=== PATIENT | male | born 1975 | race Caucasian/White ===

== ENCOUNTER 2019-03-04 07:14 | Emergency (ER) | payer BC ==
[~2019-03-04] VITALS: Ht 185.4 cm; Wt 108.4 kg
[~2019-03-04 07:14] MED LIST: HYDR-4011 PO; NAPR-985 PO; TAMS-14 PO
[2019-03-04 07:18] VITALS: Ht 185.4 cm; Wt 108.4 kg
[2019-03-04] MEDS ORDERED: ONDANSETRON 4 MG INJ IV STA (07:33)
[2019-03-04] MEDS ORDERED: SOD CHLORIDE 0.9% 1,000 ML IV STA (07:33)
[2019-03-04] MEDS ORDERED: KETOROLAC 30 MG INJ IV STA (07:33)
[2019-03-04] MEDS ORDERED: IOHEXOL 300MG/ML 150 ML BTL ONE (09:10)
[2019-03-04] MEDS ORDERED: SOD CHLORIDE 0.9% 100 ML ONE (09:10)
[2019-03-04 09:56] VITALS: BP 118/66; PULSE 89; RESP 18
--- NOTE | 2019-03-04 15:46 | ERD ---
ER Documentation Chief Complaint Chief Complaint LEFT LOWER BACK PAIN STARTING AT 0400 TODAY. HPI 43-year-old male presenting with left lower back pain that started this morning around 4 AM. He was not lifting had no traumatic injury. He did go for a run yesterday for the first time in a while. Describes it as intermittent and sharp pain with no abdominal pain. No vomiting but does have nausea. No fevers or chills. Denies use of medication. Medical history is hypertension hypercholesterolemia. Denies allergies to medications. Surgical history denies. Social history denies ROS All systems reviewed and are negative except as per history of present illness. Medications Home Meds Active Scripts Naproxen* (Naprosyn*) 500 Mg Tablet, 500 MG PO BID PRN for PAIN AND/OR INFLAMMATION, #30 TAB Prov:JAMILA CHERY PA-C 03/04/19 Hydrocodone/Acetaminophen ([place] 5-325 Tablet) 1 Each Tablet, 1 TAB PO Q6H PRN for PAIN, #7 TAB Prov:JAMILA CHERY PA-C 03/04/19 Tamsulosin Hcl* (Flomax*) 0.4 Mg Cap.er.24h, 0.4 MG PO QPM, #30 CAP Prov:JAMILA CHERY PA-C 03/04/19 Allergies Allergies: Coded Allergies: No Known Allergy (Unverified , 03/04/19) PMhx/Soc Medical and Surgical Hx: pt denies Medical Hx, pt denies Surgical Hx Hx Alcohol Use: Yes Hx Substance Use: No Hx Tobacco Use: No FmHx Family History: No diabetes, No coronary disease, No other Physical Exam Vitals Vital Signs Date Temp Pulse Resp B/P (MAP) Pulse Ox O2 O2 Flow FiO2 Time Delivery Rate 03/04/19 98.1 89 18 118/66 98 09:56 (83) 03/04/19 97.7 70 16 142/89 99 07:18 (106) Physical Exam GENERAL: The patient is well-appearing, well-nourished, in no acute distress CHEST: Clear to auscultation bilaterally. There are no rales, wheezes or rhonchi. HEART: Regular rate and rhythm. No murmurs, clicks, rubs or gallops. ABDOMEN:Soft, nontender and nondistended. Good bowel sounds. No rebound or guarding. No gross peritonitis. No gross organomegaly or masses. BACK: No midline or flank tenderness. Result Diagram: 03/04/19 0741 03/04/19 0741 Results 24 hrs Laboratory Tests Test 03/04/19 07:41 White Blood Count 13.2 10^3/ul Red Blood Count 4.90 10^6/ul Hemoglobin 15.8 g/dl Hematocrit 46.3 % Mean Corpuscular Volume 94.5 fl Mean Corpuscular Hemoglobin 32.2 pg Mean Corpuscular Hemoglobin Concent 34.1 g/dl Red Cell Distribution Width 12.9 % Platelet Count 180 10^3/UL Mean Platelet Volume 10.9 fl Immature Granulocytes % 0.500 % Neutrophils % 85.9 % Lymphocytes % 9.6 % Monocytes % 3.6 % Eosinophils % 0.1 % Basophils % 0.3 % Nucleated Red Blood Cells % 0.0 /100WBC Immature Granulocytes # 0.060 10^3/ul Neutrophils # 11.4 10^3/ul Lymphocytes # 1.3 10^3/ul Monocytes # 0.5 10^3/ul Eosinophils # 0.0 10^3/ul Basophils # 0.0 10^3/ul Nucleated Red Blood Cells # 0.0 10^3/ul Urine Color YELLOW Urine Clarity CLEAR Urine pH 5.0 Urine Specific [place] 1.025 Urine Ketones NEGATIVE mg/dL Urine Nitrite NEGATIVE mg/dL Urine Bilirubin NEGATIVE mg/dL Urine Urobilinogen NEGATIVE mg/dL Urine Leukocyte Esterase NEGATIVE Chris/ul Urine Hemoglobin NEGATIVE mg/dL Urine Glucose NEGATIVE mg/dL Urine Total Protein NEGATIVE mg/dl Sodium Level 140 mmol/L Potassium Level 3.7 mmol/L Chloride Level 108 mmol/L Carbon Dioxide Level 25 mmol/L Anion Gap 7 Blood Urea Nitrogen 12 mg/dl Creatinine 1.00 mg/dl Est Glomerular Filtrat Rate mL/min > 60 mL/min Glucose Level 163 mg/dl Calcium Level 9.0 mg/dl Total Bilirubin 1.5 mg/dl Direct Bilirubin 0.00 mg/dl Indirect Bilirubin 1.5 mg/dl Aspartate Amino Transf (AST/SGOT) 30 IU/L Alanine Aminotransferase (ALT/SGPT) 34 IU/L Alkaline Phosphatase 62 IU/L Total Protein 6.8 g/dl Albumin 3.8 g/dl Globulin 3.00 g/dl Albumin/Globulin Ratio 1.26 Lipase 49 U/L Current Medications Medications Dose Sig/Etelvina Start Time Status Last (Trade) Ordered Route PRN Stop Time Admin Dose Reason Admin Sodium 1,000 ml @ Q1H STAT 03/04/19 DC 03/04/19 Chloride 1,000 mls/hr IV 07:33 07:47 03/04/19 08:32 Ondansetron 4 mg ONCE STAT 03/04/19 DC 03/04/19 HCl (Zofran IV 07:33 07:46 Inj) 03/04/19 07:34 Ketorolac 30 mg ONCE STAT 03/04/19 DC 03/04/19 Tromethamine IV 07:33 07:47 (Toradol) 03/04/19 07:34 Sodium 100 ml @ ud STK-MED 03/04/19 DC 03/04/19 Chloride ONCE .ROUTE 09:10 09:25 03/04/19 09:11 Iohexol 150 ml STK-MED 03/04/19 DC 03/04/19 (Omnipaque ONCE .ROUTE 09:10 09:30 300mg/ ml) 03/04/19 09:11 Procedures/MDM DIAGNOSTIC IMAGING REPORT Patient: SKIP PEGUERO : 1975 Age: 43 Sex: M MR #: [id number] DOS: 03/04/19732 Ordering MD: RENEE CHERY PA-C Location: [facility] Room/Bed: PROCEDURE: CT ABDOMEN/PELVIS WITH CONTRAST CLINICAL INDICATION: 43-year-old male with left flank pain. TECHNIQUE: The study was performed utilizing a GE Qumaspeed VCT 64-slice CT scanner. Direct axial sections were obtained through the abdomen and pelvis with the use of 100 of Isovue-300 nonionic intravenous contrast material. Sagittal and coronal reformations were obtained. One or more of the following dose reduction techniques were utilized: automated exposure control, adjustment of the mA and/or kV according to patient's size and/or use of iterative reconstruction technique. DICOM images are available. The images were reviewed on a PACS workstation. CTD/vol = 19.92 mGy; Total Exam DLP = 1247.49 mGy.cm. COMPARISON: None. FINDINGS: There is minimal bibasilar subsegmental atelectasis. There is no evidence for significant pleural effusion. The liver has a normal size and contour without focal areas of abnormal density or contrast enhancement. No intrahepatic nor extrahepatic biliary ductal dilatation is seen. The gallbladder demonstrates no wall thickening nor pericholecystic fluid. No biliary stones are evident. The pancreas is without areas of abnormal attenuation or contrast enhancement. This spleen is identified and has a normal size without abnormal density or contrast enhancement. The adrenal glands are unremarkable. The kidneys are functional bilaterally. There are bilateral peripelvic renal cyst. There is mild left-sided hydroureteronephrosis with perinephric and periureteral infiltration without obstructing calculus. There is a 3 mm calculus within the dependent portion of the bladder most consistent with a recently passed stone. The urinary bladder contains urine. There is fecalization of the terminal ileum with mild retained stool within the ascending colon without obstruction. The appendix is visualized and is without edema or surrounding inflammatory reaction. There is no significant free fluid. The prostate is not enlarged. There is no significant free fluid. Phleboliths are seen within the pelvis. There are prominent vessels within the left inguinal canal extending into the scrotal region consistent with a varicocele. The aortoiliac vessels are without aneurysmal dilatation. Mild degenerative changes are seen within the spine with a vacuum L2-3 disc. IMPRESSION: 1. Mild left-sided hydroureteronephrosis with 3 mm bladder calculus most consistent with a recently passed stone. 2. Bilateral peripelvic renal cysts. 3. Fecalization terminal ileum with retained stool in the proximal colon without obstruction. 4. No CT evidence for appendicitis. 5. Left sided varicocele. 6. Mild degenerative changes within the spine. ER Course: 1L NS and Toradol given in ED. Symptoms improved. MDM: 43-year-old male presenting with left flank pain. Patient has findings consistent with calculus. I have low suspicion for kidney dysfunction or septic stone. I have low suspicion for other acute abdominal emergencies. Patient is discharged with strict ER precautions and told to follow-up with primary care within 1 to 2 days for close evaluation. Patient is told symptoms change or worsen to return immediately to the ER. All questions answered at discharge Departure Diagnosis: Primary Impression: Kidney stone Condition: Stable Patient Instructions: Kidney Stone W/ Colic Referrals: COMM[facility]ITY CLIN[facility] YOU HAVE RECEIVED A MEDICAL SCREENING EXAM AND THE RESULTS INDICATE THAT YOU DO NOT HAVE A CONDITION THAT REQUIRES URGENT TREATMENT IN THE EMERGENCY DEPARTMENT. FURTHER EVALUATION AND TREATMENT OF YOUR CONDITION CAN WAIT UNTIL YOU ARE SEEN IN YOUR DOCTORS OFFICE WITHIN THE NEXT 1-2 DAYS. IT IS YOUR RESPONSIBILITY TO MAKE AN APPOINTMENT FOR FOLOW-UP CARE. IF YOU HAVE A PRIMARY DOCTOR --you should call your primary doctor and schedule an appointment IF YOU DO NOT HAVE A PRIMARY DOCTOR YOU CAN CALL OUR PHYSICIAN REFERRAL HOTLINE AT IF YOU CAN NOT AFFORD TO SEE A PHYSICIAN YOU CAN CHOSE FROM THE FOLLOWING [facility] [address] [facility] [address] [facility] [address] [facility] [address] [facility] [address] [facility]. [facility]. [address] Additional Instructions: FOLLOW UP WITH YOUR PRIMARY CARE PHYSICIAN TOMORROW.Return to this facility if you are not improving as expected. JAMILA CHERY PA-C Mar 04, 2019 15:46
== END 2019-03-04 10:33 | disposition home or self-care (01) ==
LOC: FTE 07:14
DX: N20.0 Calculus of kidney (principal)
CPT/HCPCS: 36415; 74177; 80053; 81003; 83690; 85025; 96374; 96375; 99285; J1885; J2405; J7030; Q9967